=== PATIENT | male | born 1980 | race Asian ===

== ENCOUNTER 2024-10-06 14:30 | Emergency (ER) | payer MEDICAID ==
[~2024-10-06] VITALS: Ht 172.7 cm; Wt 74.0 kg
[2024-10-06 14:39] VITALS: BP 155/95; PULSE 89; RESP 16; TEMP 36.9; O2SAT 99
[2024-10-06] MEDS: FAMOTIDINE 20MG TABLET PO ONE (15:12)
[2024-10-06] MEDS: MAGNESIUM/ALUMINUM HYDROXIDE/SIMETHICONE 30ML UDC PO STA (15:13)
[2024-10-06] MEDS: ONDANSETRON 4MG ODT PO STA (15:13)
[2024-10-06 16:00] LABS: CLARITY URINE CLEAR (CLEAR); COLOR URINE YELLOW (YELLOW); GLUCOSE URINE NEGATIVE (NEGATIVE); KETONES URINE NEGATIVE (NEGATIVE); OCCULT BLOOD URINE NEGATIVE (NEGATIVE); PH URINE 5.5 (4.5-8.0); PROTEIN URINE NEGATIVE (NEGATIVE); SPECIFIC GRAVITY URINE 1.004 (1.005-1.030)
[2024-10-06 16:01] LABS: LEUKOCYTE ESTERASE URINE NEGATIVE (NEGATIVE); NITRITE URINE NEGATIVE (NEGATIVE); UROBILINOGEN URINE 0.2 E.U./dL (0.2-1.0)
[2024-10-06 16:05] LABS: BASOPHILS % 1.4 % (0.0-2.0); HEMATOCRIT. 40.3 % (42.0-52.0); HEMOGLOBIN. 13.8 g/dL (14.0-18.0); LYMPHOCYTES % 24.9 % (20.0-50.0); MEAN CORPUSCULAR HEMOGLOBIN 29.8 pg (28.0-32.0); MEAN CORPUSCULAR HGB CONC 34.2 g/dL (31.0-37.0); MEAN CORPUSCULAR VOLUME 87.2 fL (80.0-94.0); MEAN PLATELET VOLUME 6.4 fl (7.4-10.4); MONOCYTES % 7.9 % (2.0-8.0); NEUTROPHILS % 60.8 % (40.0-76.0); PLATELET 368 x1000/uL (130-400); RED BLOOD CELL COUNT 4.62 mill/uL (4.7-6.1); RED CELL DISTRIBUTION WIDTH 13.3 % (11.6-14.6); WHITE BLOOD COUNT 6.2 x1000/uL (4.5-11.0)
[2024-10-06 16:15] LABS: CARBON DIOXIDE 28 mEq/L (21-32); CHLORIDE 101 mEq/L (98-107); POTASSIUM 4.3 mEq/L (3.5-5.1); SODIUM 136 mEq/L (136-145)
[2024-10-06 16:16] LABS: CALCIUM 8.6 mg/dL (8.7-10.4)
[2024-10-06 16:20] LABS: CREATININE 0.8 mg/dL (0.6-1.3)
[2024-10-06 16:21] LABS: ETHANOL BLOOD < 10 mg/dL (<10); GLUCOSE 104 mg/dL (70-105); UREA NITROGEN BLOOD 9 mg/dL (9-23)
[2024-10-06 16:22] LABS: ALANINE AMINOTRANSFERASE 118 IU/L (10-49); ASPARTATE AMINOTRANSFERASE 75 IU/L (<34)
[2024-10-06 16:23] LABS: ALBUMIN 3.7 g/dL (3.2-4.8); BILIRUBIN DIRECT < 0.1 mg/dL (<=3.0); BILIRUBIN TOTAL 0.3 mg/dL (0.1-1.0); PROTEIN TOTAL 6.7 g/dL (6.0-8.3)
== END 2024-10-06 16:36 | disposition home or self-care (01) ==
LOC: ER 14:30
DX: K29.70 Gastritis, unspecified, without bleeding (principal); Z88.0 Allergy status to penicillin; Z86.73 Personal history of transient ischemic attack (TIA), and cerebral infarction without residual deficits
CPT/HCPCS: 80076; 80048; 81003; 80320; 83690; 85025; 36415; 99284; Q0162; G0480